=== PATIENT | male | born 1965 | race Caucasian/White ===

== ENCOUNTER 2020-09-02 16:24 | Outpatient (REF) | payer OTHER, SELFPAY ==
[2020-09-02 18:34] LABS: Alanine Aminotransferase 41 U/L (0-40); Albumin Level 4.3 g/dL (3.5-5.0); Alkaline Phosphatase 44 U/L (39-117); Anion Gap 12 (12-20); Aspartate Amino Transferase 25 U/L (5-37); Bilirubin Total 0.4 mg/dL (0.0-1.0); Blood Urea Nitrogen 15 mg/dL (9-16); Carbon Dioxide 31 mmol/L (22-29); Chloride 99 mmol/L (96-108); Cholesterol 140 mg/dL; Estimated Glomerular Filt Rate > 60; Glucose Random 208 mg/dL (60-115); HDL Cholesterol 26 mg/dL; LDL Cholesterol Calculated 87 mg/dl; Potassium 3.9 mmol/l (3.3-5.1); Sodium 138 mmol/L (135-145); Total Protein 6.7 g/dL (6.5-8.0); Triglycerides 135 mg/dL
[2020-09-03 04:35] LABS: Estimated Average Glucose 166 mg/dL; Hemoglobin A1c % 7.4 %
== END 2020-09-02 16:25 | disposition home or self-care (01) ==
LOC: HO.LAB 16:24
PROVIDERS: PCP Internal Medicine; Visit Provider Internal Medicine
DX: E11.65 Type 2 diabetes mellitus with hyperglycemia (principal); E78.2 Mixed hyperlipidemia; R80.9 Proteinuria, unspecified
CPT/HCPCS: 80053; 80061; 83036

== ENCOUNTER 2020-12-02 11:40 | Outpatient (REF) | payer OTHER, SELFPAY ==
[2020-12-02 13:46] LABS: Alanine Aminotransferase 48 U/L (0-40); Albumin Level 4.2 g/dL (3.5-5.0); Alkaline Phosphatase 41 U/L (39-117); Anion Gap 12 (12-20); Aspartate Amino Transferase 30 U/L (5-37); Bilirubin Total 0.5 mg/dL (0.0-1.0); Blood Urea Nitrogen 12 mg/dL (9-16); Calcium 9.6 mg/dL (8.4-10.2); Carbon Dioxide 31 mmol/L (22-29); Chloride 100 mmol/L (96-108); Cholesterol 96 mg/dL; Estimated Glomerular Filt Rate > 60; Glucose Random 169 mg/dL (60-115); HDL Cholesterol 25 mg/dL; LDL Cholesterol Calculated 49 mg/dl; Sodium 139 mmol/L (135-145); Total Protein 6.7 g/dL (6.5-8.0); Triglycerides 110 mg/dL
[2020-12-02 14:01] LABS: Estimated Average Glucose 160 mg/dL; Hemoglobin A1c % 7.2 %
== END 2020-12-02 11:41 | disposition home or self-care (01) ==
LOC: HO.LAB 11:40
PROVIDERS: PCP Internal Medicine; Visit Provider Internal Medicine
DX: E11.65 Type 2 diabetes mellitus with hyperglycemia (principal); E78.00 Pure hypercholesterolemia, unspecified; I10 Essential (primary) hypertension; R80.9 Proteinuria, unspecified
CPT/HCPCS: 36415; 80053; 80061; 83036

== ENCOUNTER 2021-02-02 17:12 | Outpatient (REF) | payer OTHER, SELFPAY ==
[2021-02-02 18:59] LABS: Alanine Aminotransferase 44 U/L (0-40); Albumin Level 4.4 g/dL (3.5-5.0); Alkaline Phosphatase 39 U/L (39-117); Anion Gap 12 (12-20); Aspartate Amino Transferase 33 U/L (5-37); Bilirubin Total 0.6 mg/dL (0.0-1.0); Blood Urea Nitrogen 15 mg/dL (9-16); Calcium 9.5 mg/dL (8.4-10.2); Carbon Dioxide 29 mmol/L (22-29); Chloride 104 mmol/L (96-108); Estimated Glomerular Filt Rate > 60; Glucose Random 110 mg/dL (60-115); Sodium 141 mmol/L (135-145); Total Protein 6.9 g/dL (6.5-8.0)
[2021-02-03 08:33] LABS: Estimated Average Glucose 169 mg/dL; Hemoglobin A1c % 7.5 %
== END 2021-02-02 17:13 | disposition home or self-care (01) ==
LOC: HO.LAB 17:12
PROVIDERS: PCP Internal Medicine; Visit Provider Internal Medicine
DX: E11.9 Type 2 diabetes mellitus without complications (principal); E78.00 Pure hypercholesterolemia, unspecified; I10 Essential (primary) hypertension; Z68.33 Body mass index [BMI] 33.0-33.9, adult
CPT/HCPCS: 36415; 80053; 83036

== ENCOUNTER 2021-04-19 11:03 | Emergency (ER) | payer OTHER, SELFPAY ==
[2021-04-19 11:34] VITALS: BP 126/81; PULSE 72; RESP 18; TEMP 36.6; O2SAT 97; BMI 33.4
--- NOTE | 2021-04-19 12:31 | ED_ITS ---
HPI - Eye Problem General Chief complaint: Eye Problems Stated complaint: EYE ISSUE Time Seen by Provider: 04/19/21 12:25 Source: patient Mode of arrival: ambulatory Limitations: no limitations History of Present Illness HPI Narrative: 56 years old male came in for evaluation of pain, redness, swelling of the right lower eyelid. Symptoms started 1 day ago, decline using contact lines, no visual change, no blurred vision. Associated symptoms: none Related Data Previous Rx's Medication Instructions Recorded erythromycin 0.5 inch OPHTHALMIC (EYE) TID #3.5 04/19/21 g Allergies Allergy/AdvReac Type Severity Reaction Status Date / Time No Known Allergies Allergy Unverified 07/02/20 14:45 Review of Systems Review of Systems: All other systems are reviewed and are negative Constitutional: Reports as per HPI and Reports no additional constitutional complaints Eyes: Reports as per HPI and Reports no additional eye complaints Reports system reviewed and no additional complaints, except as documented Cardiovascular: Reports as per HPI and Reports no additional cardiovascular complaints Respiratory: Reports as per HPI and Reports no additional respiratory complaints Gastrointestinal: Reports as per HPI and Reports no additional gastrointestinal complaints Genitourinary: Reports no additional female genitourinary complaints Musculoskeletal: Reports no additional musculoskeletal complaints Skin/Breast: Reports system reviewed and no additional complaints, except as docu Psychiatric: Reports no additional psychiatric complaints Endocrine: Reports no additional endocrine complaints Hematologic/Lymphatic: Reports no additional hematologic/lymphatic complaints Allergic/Immunologic: Reports no additional allergic/immunologic complaints Reports system reviewed and no additional complaints, except as documented and Reports Abnormal speech present [facility] Social History Social History Advance Directives: No Advance Directives Information Provided: No Physical Exam Vital Signs: Vital Signs: Last Vital Signs Temp 98 F 04/19/21 11:34 Pulse 72 04/19/21 11:34 Resp 18 04/19/21 11:34 BP 126/81 04/19/21 11:34 Pulse Ox 97 04/19/21 11:34 Body Mass Index 33.4 vital signs have been reviewed as appeared to be correct. Blood pressure normal. Heart rate normal. Respiration rate normal. Temperature normal. Oxygen saturation normal. Appearance: Alert. Oriented X3. No acute distress. Head: Normal external exam. Normocephalic. Atraumatic. No Rajput signs noted. No raccoon eyes noted ENT: TM's Normal. Pharynx normal. Uvula midline. Moist mucous membranes. No trismus noted. No drooling noted. No muffled voice noted. Neck: Normal inspection. Neck supple. FROM. No adenopathy. Thyroid Normal. No meningeal signs. No neck mass noted. CVS: Normal heart rate and rhythm. Heart sound normal. No murmurs noted. Pulses normal throughout. Respiratory: No respiratory distress. Painless inspiration. Breath sounds normal. No wheezes/rales/rhonchi noted. Chest nontender. No accessory muscle usage noted or decreased air movement noted. Abdomen: Soft and nontender. Bowel sounds normal in all 4 quadrants. No distention noted. No organomegaly noted. No visible injury noted. Back: No CVA tenderness. Full range of motion noted. Skin: Skin warm and dry. Normal skin color. Normal skin turgor. No rashes/lesions/lacerations noted. Extremities: No lower extremity edema. Extremities exhibit normal range of motion. Extremities nontender. Neuro: Oriented X 3. No motor deficit. No sensory deficit. Reflexes normal. Eyes: Visual Hodge: normal visual hodge by confrontation (VA 20/40 L and 20/50 R.) Alignment and Position: alignment normal Periorbital: periorbital findings normal Eyelids: Yes other ( Right lower eyelid redness and swelling,tenderness on the lateral aspect) Conjunctivae: conjunctivae normal Sclerae: sclerae normal Corneas: corneas normal Pupils: Equal, round and reactive pupils present EOM: EOMs intact bilaterally Direct Ophthalmoscopy: normal light reflex, no photophobia, no papilledema and anterior chamber normal Neuro: Cranial nerves: Yes Equal, round and reactive pupils present Course Course Course Narrative: right lower eyelid infected stye. Warm compression, erythromycin ointment. Discharge Plan Discharge Clinical Impression: Hordeolum externum of right lower eyelid Patient Disposition: Home, Self-Care Instructions: Joni (ED) Additional Instructions: apply warm compression to the right eye Prescriptions: New erythromycin 5 mg/gram (0.5 %) ointment 0.5 inch ophthalmic (eye) TID Qty: 3.5 RF: 1 Referrals: Kasia Bach MD [Primary Care Provider] - 2 days
--- NOTE | 2021-04-19 12:39 | PC.NURSE ---
Pt removed reading glasses for exam as he states that they are to be used for up close reading only. He states that his right eye is slightly more blurry than normal at this time.
== END 2021-04-19 12:44 | disposition home or self-care (01) ==
PROVIDERS: Emergency Provider Emergency Medicine; PCP Internal Medicine
DX: H00.012 Hordeolum externum right lower eyelid (principal)
CPT/HCPCS: 99283

== ENCOUNTER 2021-05-30 10:17 | Emergency (ER) | payer OTHER, SELFPAY ==
[2021-05-30 10:31] VITALS: BP 138/82; PULSE 63; RESP 17; TEMP 36.6; O2SAT 98; BMI 33.5
--- NOTE | 2021-05-30 10:53 | ED_ITS ---
HPI - Eye Problem General Chief complaint: Eye Problems Stated complaint: eye pain swollen Time Seen by Provider: 05/30/21 10:40 Source: patient Mode of arrival: ambulatory History of Present Illness HPI Narrative: 56-year-old male with past medical history of diabetes, hypertension presenting to the ED complaining of acute on chronic stye to right lower eyelid times months. Admits area came to a head recently. Admits to wearing glasses, not contacts. Denies visual change/loss, drainage from eye, foreign body sensation Reports compliance with previously prescribed erythromycin ointment and warm compresses without improvement in symptoms Related Data Previous Rx's Medication Instructions Recorded erythromycin 5 mg/gram (0.5 %) eye 0.5 inch OPHTHALMIC (EYE) TID #3.5 04/19/21 ointment g Allergies Allergy/AdvReac Type Severity Reaction Status Date / Time No Known Allergies Allergy Unverified 07/02/20 14:45 Review of Systems Review of Systems: Constitutional: No Fever, No Chills, No Fatigue, No Malaise ENT/Mouth: No Hearing loss, No Ear Pain, No sore throat, No Swallowing Difficulty Eyes: + Eye discomfort, + Swelling, No Redness, No Foreign Body, No Discharge, No Vision Changes Skin: No Skin Lesions, No rash Yes all other systems are reviewed and are negative [facility] Past Medical History Attestation statement: The following information was validated with the patient. Medical History (Updated 05/30/21 @ 10:55 by RED Andrade) Diabetes HTN (hypertension) Physical Exam Vital Signs: Vital Signs: Last Vital Signs Temp 98 F 05/30/21 10:31 Pulse 63 05/30/21 10:31 Resp 17 05/30/21 10:31 BP 138/82 05/30/21 10:31 Pulse Ox 98 05/30/21 10:31 Body Mass Index 33.5 Const: General: cooperative and healthy appearing Orientation/consciousness: patient oriented x3 Limitations: no limitations HENMT: Head: Yes normal to inspection Ears: hearing grossly normal [place] aterally General nose exam: Normal external nose present Face and sinus: Yes normal facial exam Eyes: Other: Visual acuity 20/40 bilaterally corrected Right lower lid with internal chalazion. Nontender. No surrounding erythema/cellulitis. EOMs intact without pain General: appearance normal, both eyes and all related structures Conjunctivae: conjunctivae normal Sclerae: sclerae normal Corneas: corneas normal Pupils: Equal, round and reactive pupils present EOM: EOMs intact bilaterally Direct Ophthalmoscopy: normal light reflex and no photophobia Neck: Neck: Yes normal visual inspection, Yes no lymphadenopathy and Yes no meningeal signs Resp: Effort & Inspection: normal respiratory effort and no respiratory distress Cardio: Rate: regular rate Skin: Rashes: no rashes Wounds: no wounds Neuro: General: patient oriented x3 and no meningeal signs Cranial nerves: Yes Equal, round and reactive pupils present Gait exam (Neuro): Normal gait present Extrem: General: Yes normal to inspection MDM - Eye Problem MDM Narrative Medical decision making narrative: Discussed with patient he needs to follow-up with ophthalmology for likely drainage of the chalazion Discharge Plan Discharge Clinical Impression: Chalazion Qualifiers: Laterality: right Eyelid: lower Qualified Code(s): H00.12 - Chalazion right lower eyelid Patient Disposition: Home, Self-Care Instructions: Chalazion (ED) Additional Instructions: Call the electronic equipment set up operator tomorrow to make an appointment If your symptoms persist or worsen, any visual change or loss please return to the ED Prescriptions: No Action erythromycin 5 mg/gram (0.5 %) ointment 0.5 inch ophthalmic (eye) TID Qty: 3.5 RF: 1 Referrals: Sohan Max [Physician] - 2 days
== END 2021-05-30 11:22 | disposition home or self-care (01) ==
LOC: HO.ED 11:02
PROVIDERS: Emergency Provider Emergency Medicine; PCP Internal Medicine
DX: H00.12 Chalazion right lower eyelid (principal)
CPT/HCPCS: 99282; 99284

== ENCOUNTER 2022-11-24 16:32 | Outpatient (REF) | payer OTHER, SELFPAY ==
[2022-11-24 16:47] LABS: MANUAL DIFF FLAG NO
[2022-11-24 17:37] LABS: Basophils Absolute Auto 0.1 X10*3/uL (0.0-0.2); Basophils Percent Auto 1.1 % (0-2); Eosinophils Absolute Auto 0.3 X10*3/uL (0.0-0.4); Eosinophils Percent Auto 3.9 % (0-4); Hemoglobin 15.8 g/dl (14.0-18.0); Imm Gran Abs Auto 0.01 X10*3/uL (0.00-0.03); Imm Gran Pct Auto 0.1 % (0.0-0.4); Lymphocytes Absolute Auto 2.7 X10*3/uL (1.2-4.9); Lymphocytes Percent Auto 33.8 % (20-40); Mean Corpuscular HGB Conc 33.6 g/dl (31.0-36.0); Mean Corpuscular Hemoglobin 29.3 pg (27.0-33.0); Mean Platelet Volume 10.3 fL (9.4-12.4); Monocytes Absolute Auto 0.5 X10*3/uL (0.1-1.2); Monocytes Percent Auto 6.3 % (2-11); Neutrophils Absolute Auto 4.4 x10*3/uL (2.0-8.3); Neutrophils Percent Auto 54.8 % (45-73); Platelet Count 219 X10*3/uL (160-400); Red Cell Distribution Width 12.6 % (11.0-16.0)
[2022-11-24 17:43] LABS: Estimated Average Glucose 169 mg/dL; Hemoglobin A1c % 7.5 %
[2022-11-24 18:03] LABS: Alanine Aminotransferase 32 U/L (0-40); Albumin Level 4.4 g/dL (3.5-5.0); Alkaline Phosphatase 40 U/L (39-117); Anion Gap 16 (12-20); Aspartate Amino Transferase 27 U/L (5-37); Bilirubin Total 0.6 mg/dL (0.0-1.0); Blood Urea Nitrogen 18 mg/dL (9-16); Calcium 9.8 mg/dL (8.4-10.2); Carbon Dioxide 28 mmol/L (22-29); Chloride 101 mmol/L (96-108); Cholesterol 100 mg/dL; Estimated Glomerular Filt Rate > 60; Glucose Random 92 mg/dL (60-115); HDL Cholesterol 29 mg/dL; LDL Cholesterol Calculated 53 mg/dl; Potassium 4.3 mmol/L (3.3-5.1); Sodium 141 mmol/L (135-145); Total Protein 6.8 g/dL (6.5-8.0); Triglycerides 91 mg/dL
[2022-11-24 18:20] LABS: Prostate Specific Antigen 0.76 ng/mL (<0.05-4.0)
== END 2022-11-24 16:33 | disposition home or self-care (01) ==
LOC: HO.LAB 16:32
PROVIDERS: PCP Internal Medicine; Visit Provider Internal Medicine
DX: Z00.00 Encounter for general adult medical examination without abnormal findings (principal); Z12.5 Encounter for screening for malignant neoplasm of prostate; E11.9 Type 2 diabetes mellitus without complications; E78.00 Pure hypercholesterolemia, unspecified; I10 Essential (primary) hypertension
CPT/HCPCS: 36415; 80053; 80061; 82043; 83036; 84153; 85025

== ENCOUNTER 2023-06-01 14:17 | Outpatient (REF) | payer OTHER, SELFPAY ==
[2023-06-01 15:24] LABS: Estimated Average Glucose 137 mg/dL; Hemoglobin A1c % 6.4 %
[2023-06-01 15:30] LABS: Alanine Aminotransferase 38 U/L (0-40); Albumin Level 4.3 g/dL (3.5-5.0); Alkaline Phosphatase 35 U/L (39-117); Anion Gap 11 (12-20); Aspartate Amino Transferase 25 U/L (5-37); Bilirubin Total 0.3 mg/dL (0.0-1.0); Blood Urea Nitrogen 13 mg/dL (9-16); Calcium 9.9 mg/dL (8.4-10.2); Carbon Dioxide 29 mmol/L (22-29); Chloride 104 mmol/L (96-108); Estimated Glomerular Filt Rate > 60; Glucose Random 102 mg/dL (60-115); Potassium 3.8 mmol/L (3.3-5.1); Sodium 140 mmol/L (135-145); Total Protein 7.1 g/dL (6.5-8.0)
[2023-06-01 15:31] LABS: Creatinine Urine 261.27 mg/dL; Microalbum/Creatinine Ratio Ur 37.1 ug/mg cr
== END 2023-06-01 14:18 | disposition home or self-care (01) ==
LOC: HO.LAB 14:17
PROVIDERS: PCP Internal Medicine; Visit Provider Internal Medicine
DX: E11.9 Type 2 diabetes mellitus without complications (principal); E78.00 Pure hypercholesterolemia, unspecified; I10 Essential (primary) hypertension; Z72.0 Tobacco use
CPT/HCPCS: 36415; 80053; 82043; 83036

== ENCOUNTER 2023-12-26 16:32 | Outpatient (REF) | payer OTHER, SELFPAY ==
[2023-12-26 16:42] LABS: MANUAL DIFF FLAG NO
[2023-12-26 17:51] LABS: Basophils Absolute Auto 0.1 X10*3/uL (0.0-0.2); Basophils Percent Auto 1.1 % (0-2); Eosinophils Absolute Auto 0.5 X10*3/uL (0.0-0.4); Eosinophils Percent Auto 6.8 % (0-4); Hematocrit 45.2 % (42.0-52.0); Hemoglobin 15.5 g/dl (14.0-18.0); Imm Gran Abs Auto 0.02 X10*3/uL (0.00-0.03); Imm Gran Pct Auto 0.3 % (0.0-0.4); Lymphocytes Absolute Auto 2.7 X10*3/uL (1.2-4.9); Lymphocytes Percent Auto 33.7 % (20-40); Mean Corpuscular HGB Conc 34.3 g/dl (31.0-36.0); Mean Corpuscular Hemoglobin 29.6 pg (27.0-33.0); Mean Corpuscular Volume 86.4 fL (80.0-98.0); Mean Platelet Volume 10.3 fL (9.4-12.4); Monocytes Absolute Auto 0.5 X10*3/uL (0.1-1.2); Monocytes Percent Auto 6.2 % (2-11); Neutrophils Absolute Auto 4.1 x10*3/uL (2.0-8.3); Neutrophils Percent Auto 51.9 % (45-73); Platelet Count 205 X10*3/uL (160-400); Red Blood Count 5.23 X10*6/uL (4.60-5.80); White Blood Count 7.9 X10*3/uL (4.8-10.8)
[2023-12-26 17:54] LABS: Estimated Average Glucose 203 mg/dL; Hemoglobin A1c % 8.7 % (<6.0)
[2023-12-26 18:31] LABS: Alanine Aminotransferase 33 U/L (0-40); Albumin Level 4.1 g/dL (3.5-5.0); Alkaline Phosphatase 44 U/L (39-117); Anion Gap 9 (12-20); Aspartate Amino Transferase 27 U/L (5-37); Bilirubin Total 0.2 mg/dL (0.0-1.0); Blood Urea Nitrogen 16 mg/dL (9-16); Calcium 9.6 mg/dL (8.4-10.2); Carbon Dioxide 29 mmol/L (22-29); Chloride 106 mmol/L (96-108); Cholesterol 89 mg/dL (<200); Estimated Glomerular Filt Rate > 60; Glucose Random 159 mg/dL (60-115); HDL Cholesterol 28 mg/dL (>40); LDL Cholesterol Calculated 30 mg/dL (<100); Potassium 3.7 mmol/L (3.3-5.1); Sodium 140 mmol/L (135-145); Total Protein 6.7 g/dL (6.5-8.0); Triglycerides 158 mg/dL (<150)
[2023-12-26 18:35] LABS: Microalbum/Creatinine Ratio Ur 22.9 ug/mg cr (<30)
[2023-12-26 18:50] LABS: Prostate Specific Antigen 0.67 ng/mL (<0.05-4.0)
== END 2023-12-26 16:33 | disposition home or self-care (01) ==
LOC: HO.LAB 16:32
PROVIDERS: PCP Internal Medicine; Visit Provider Internal Medicine
DX: Z00.00 Encounter for general adult medical examination without abnormal findings (principal); Z12.5 Encounter for screening for malignant neoplasm of prostate; E11.9 Type 2 diabetes mellitus without complications; E78.00 Pure hypercholesterolemia, unspecified; I10 Essential (primary) hypertension; Z72.0 Tobacco use
CPT/HCPCS: 36415; 80053; 80061; 82043; 82570; 83036; 84153; 85025

== ENCOUNTER 2024-04-11 14:05 | Emergency (ER) | payer OTHER, SELFPAY ==
--- NOTE | ~2024-04-11 | XR_ITS ---
EXAMINATION: XR FOOT, LEFT CLINICAL INFORMATION: Question foreign body. Stepped on earing. COMPARISON: None available. TECHNIQUE: AP, lateral, and oblique views of the left foot. FINDINGS: There is no fracture or dislocation. There are mild degenerative changes of the distal interphalangeal joints of digits 2 through 5. There is a calcaneal spur. No radiopaque foreign object is identified within the soft tissues. XR/XR foot LT min 3V IMPRESSION: No fracture or dislocation. No radiopaque foreign object is identified within the soft tissues.
[2024-04-11 14:46] VITALS: BP 120/35; PULSE 97; RESP 19; TEMP 36.6; O2SAT 98; BMI 31.0
--- NOTE | 2024-04-11 14:56 | ED_ITS ---
HPI - Wound/Laceration General Chief Complaint: Wound/Laceration Stated Complaint: stepped on earring l foot inj Time Seen by Provider: 04/11/24 14:55 Source: patient Mode of arrival: ambulatory Limitations: no limitations History of Present Illness ED Provider: christine HPI narrative: Patient is a 58-year-old male with history of T2DM presenting to the ED with complaint of pain to left foot since Monday. States he accidentally stepped on his daughter's earring while wearing slippers, and the earring punctured through the slipper into his foot. Denies any discharge or drainage. Denies fevers. Has not taken any OTC medications. Unsure of last Tdap, will attempt to call PCP to confirm. Onset (ago): day(s) Extremity Location: left: foot Place: home Patient tetanus UTD: No Context: accidental Associated symptoms: pain Related Data Previous Rx's ?Medication ?Instructions ?Recorded erythromycin 5 mg/gram (0.5 %) eye 0.5 inch ophthalmic (eye) TID #3.5 04/19/21 ointment grams amoxicillin 875 mg-potassium 1 tab PO BID #14 tabs 04/11/24 clavulanate 125 mg tablet Allergies Allergy/AdvReac Type Severity Reaction Status Date / Time No Known Allergies Allergy Verified 04/11/24 14:49 Review of Systems 2 Review of Systems: As per HPI. Yes all other systems are reviewed and are negative Constitutional: Constitutional: Reports as per HPI FORMERLY [facility], [facility] Past Medical History Medical History (Updated 04/11/24 @ 16:35 by Lindsay Frost NP) Diabetes HTN (hypertension) Social History Social History Smoked in Last 30 Days: No Use of substances other than those prescribed or required for medical reasons: No Advance Directives: No Advance Directives Information Provided: Yes Physical Exam 2 Vital Signs: Vital Signs: Last Vital Signs Temp 97.2 F 04/11/24 15:23 Pulse 58 04/11/24 15:23 Resp 16 04/11/24 15:23 BP 117/75 04/11/24 15:23 Pulse Ox 97 04/11/24 15:23 O2 Del Method Room Air 04/11/24 15:23 BMI result Body Mass Index 31.0 Vital signs have been reviewed and appear to be correct. Blood pressure normal. Heart rate normal. Respiratory rate normal. Temperature normal. Oxygen saturation normal. Const: General: cooperative, healthy appearing and no acute distress O rientation/consciousness: oriented to person, oriented to place, oriented to time and patient oriented x3 Limitations: no limitations HEENT: Head: Yes normocephalic and Yes atraumatic Ears: external ears normal General nose exam: Normal external nose present Face and sinus: Yes face symmetric Mouth: oropharynx normal and moist mucous membranes Throat: Yes uvula midline Eyes: Pupils: Equal, round and reactive pupils present Neck: Neck: Yes normal visual inspection and Yes supple Resp: Effort & Inspection: normal respiratory effort and able to speak in complete sentences Auscultation: clear to auscultation bilaterally Cardio: Rate: regular rate Rhythm: regular rhythm Heart sounds: S1 normal heart sound present and S2 normal heart sound present GI: Palpation (GI): Soft to palpation and nontender Auscultation: n ormoactive bowel sounds : General: Yes no CVA tenderness Back/Spine/Pelvis: Back: no CVA tenderness Skin: General skin exam: elasticity normal and turgor normal Neuro: General: oriented to person, oriented to place, oriented to time, patient oriented x3, moves all extremities, no focal motor deficits and CN's II- XI intact bilaterally Cranial nerves: Yes Equal, round and reactive pupils present Cognition (Neuro): normal cognition Extrem: General: Yes full ROM, Yes normal exam except as noted, Yes no pedal edema and Yes no calf tenderness Ankle/foot/toe images: 1. puncture wound, mild swelling, no fluctuance Psych: Mental Status: mental status grossly normal Affect: normal affect Thought process: Normal thought process present Medications Administered Discontinued Medications Generic Name Dose Route Start Last Admin Trade Name Freq PRN Reason Stop Dose Admin Diphtheria/Tetanus/Acell Pertussis 0.5 ml 04/11/24 15:35 04/11/24 15:51 Diphth,Pertus(Acell),Tet Adult 0.5 Ml Syringe IM 04/11/24 15:36 0.5 ml .ONCE ONE Administration Medical Decision Making Medical Decision Making MDM Narrative: Patient is a 58-year-old male with history of T2DM presenting to the ED with complaint of pain to left foot since Monday. On exam patient is awake, A+Ox3, VS WNL, afebrile, normal neurological exam without focal deficits, physical exam findings as above. Given reported symptoms and physical exam findings, initial differential includes puncture wound, abscess, cellulitis, foreign body. X-ray notable for no evidence of foreign body or fracture to left foot. My interpretation is in agreement with the radiologist's interpretation. Tdap updated as patient unable to reach PCP office. Will treat with Augmentin. Concerning symptoms and return precautions discussed with patient at bedside. Advised him to follow up with PCP. Patient verbalized understanding of and agreement with plan. Differential Diagnosis Differential Diagnoses: The differential diagnosis associated with the presentation includes As per MDM Independent Interpretation I performed an independent interpretation of an: Plain X-Ray Interpretation: No evidence of foreign body or fracture to left foot on x-ray. Radiology Impression Discussion of test interpretation with radiology: I have reviewed the radiologist's reading. Radiologist Impression: XR/XR foot LT min 3V IMPRESSION: No fracture or dislocation. No radiopaque foreign object is identified within the soft tissues. External Record Review External record reviewed: Inpatient record, Office record and Outpatient record Prescription Management I considered prescription management with: Antibiotic Discharge Plan Discharge Clinical Impression: Puncture wound of foot, left Patient Disposition: Home, Self-Care Instructions: Puncture Wound (DC), Puncture Wound in the Foot (ED) Additional Instructions: You have been evaluated in the emergency department today for a puncture wound to your foot. Your x-ray did not show evidence of a retained foreign body or fracture. Please take your prescribed antibiotics as directed for the full course of the medication. You can use Tylenol or ibuprofen per package instructions every 6 hours as needed for pain. If necessary, you can alternate these medications so that you can take one medication every 3 hours. For instance, at noon take ibuprofen, then at 3:00 p.m. take Tylenol, then at 6:00 p.m. take ibuprofen. Please schedule an appointment for follow-up with your primary care physician as soon as possible. Return to the emergency department if you experience recurrent vomiting, fevers greater than 100.4? F, increasing area of redness, warmth around the area, foul-smelling discharge from the area, increased tenderness around the area, or any other concerning symptoms. Prescriptions: New amoxicillin-pot clavulanate 875-125 mg tablet 1 tab PO BID Qty: 14 0RF No Action erythromycin 5 mg/gram (0.5 %) ointment 0.5 inch ophthalmic (eye) TID Qty: 3.5 1RF Print Language: Bangladeshi
[2024-04-11 15:23] VITALS: BP 117/75; PULSE 58; RESP 16; TEMP 36.2; O2SAT 97
[2024-04-11] MEDS: Diphth,Pertus(ACell),Tet Adult 0.5 ML SYRINGE IM (15:51)
[2024-04-11 16:43] VITALS: BP 120/75; PULSE 60; RESP 18; TEMP 36.6; O2SAT 98
== END 2024-04-11 16:44 | disposition home or self-care (01) ==
PROVIDERS: Emergency Provider Emergency Medicine; PCP Internal Medicine
DX: S91.332A Puncture wound without foreign body, left foot, initial encounter (principal); W22.8XXA Striking against or struck by other objects, initial encounter; M79.672 Pain in left foot; E11.9 Type 2 diabetes mellitus without complications; I10 Essential (primary) hypertension; Y93.89 Activity, other specified; Y92.009 Unspecified place in unspecified non-institutional (private) residence as the place of occurrence of the external cause; Y99.9 Unspecified external cause status; Z23 Encounter for immunization
CPT/HCPCS: 73630; 90471; 90715; 99284

== ENCOUNTER 2024-07-17 16:51 | Outpatient (REF) | payer OTHER, SELFPAY ==
[2024-07-17 17:16] LABS: Basophils Absolute Auto 0.1 X10*3/uL (0.0-0.2); Eosinophils Absolute Auto 0.3 X10*3/uL (0.0-0.4); Eosinophils Percent Auto 4.1 % (0-4); Hematocrit 47.1 % (42.0-52.0); Hemoglobin 16.1 g/dl (14.0-18.0); Imm Gran Abs Auto 0.01 X10*3/uL (0.00-0.03); Imm Gran Pct Auto 0.1 % (0.0-0.4); Lymphocytes Absolute Auto 2.3 X10*3/uL (1.2-4.9); MANUAL DIFF FLAG NO; Mean Corpuscular HGB Conc 34.2 g/dl (31.0-36.0); Mean Corpuscular Hemoglobin 29.3 pg (27.0-33.0); Mean Corpuscular Volume 85.8 fL (80.0-98.0); Mean Platelet Volume 9.9 fL (9.4-12.4); Monocytes Absolute Auto 0.4 X10*3/uL (0.1-1.2); Monocytes Percent Auto 5.9 % (2-11); Neutrophils Absolute Auto 4.1 x10*3/uL (2.0-8.3); Neutrophils Percent Auto 56.9 % (45-73); Platelet Count 196 X10*3/uL (160-400); Red Blood Count 5.49 X10*6/uL (4.60-5.80); Red Cell Distribution Width 12.6 % (11.0-16.0); White Blood Count 7.3 X10*3/uL (4.8-10.8)
[2024-07-17 18:09] LABS: Creatinine Urine 141.92 mg/dL; Microalbum/Creatinine Ratio Ur 22.5 ug/mg cr (<30)
[2024-07-17 19:22] LABS: Alanine Aminotransferase 38 U/L (0-40); Albumin Level 4.2 g/dL (3.5-5.0); Alkaline Phosphatase 50 U/L (39-117); Anion Gap 13 (12-20); Aspartate Amino Transferase 27 U/L (5-37); Bilirubin Total 0.5 mg/dL (0.0-1.0); Blood Urea Nitrogen 12 mg/dL (9-16); Calcium 9.4 mg/dL (8.4-10.2); Carbon Dioxide 29 mmol/L (22-29); Chloride 102 mmol/L (96-108); Cholesterol 92 mg/dL (<200); Estimated Glomerular Filt Rate > 60; Glucose Random 198 mg/dL (60-115); HDL Cholesterol 31 mg/dL (>40); LDL Cholesterol Calculated 43 mg/dL (<100); Potassium 4.1 mmol/L (3.3-5.1); Sodium 140 mmol/L (135-145); Total Protein 6.9 g/dL (6.5-8.0); Triglycerides 90 mg/dL (<150)
[2024-07-17 19:42] LABS: Prostate Specific Antigen 0.74 ng/mL (<0.05-4.0)
[2024-07-18 07:53] LABS: Estimated Average Glucose 226 mg/dL; Hemoglobin A1C 322.0008 umol/L; Hemoglobin A1c % 9.5 % (<6.0); Total Hemoglobin (HGBA1C) 3981.8245 umol/L
== END 2024-07-17 16:52 | disposition home or self-care (01) ==
LOC: HO.LAB 16:51
PROVIDERS: PCP Internal Medicine; Visit Provider Internal Medicine
DX: E11.65 Type 2 diabetes mellitus with hyperglycemia (principal); E78.00 Pure hypercholesterolemia, unspecified; I10 Essential (primary) hypertension; N40.0 Benign prostatic hyperplasia without lower urinary tract symptoms; R80.9 Proteinuria, unspecified
CPT/HCPCS: 36415; 80053; 80061; 82043; 82570; 83036; 84153; 85025

== ENCOUNTER 2024-07-19 10:38 | Emergency (ER) | payer OTHER, SELFPAY ==
--- NOTE | ~2024-07-19 | XR_ITS ---
EXAMINATION: XR HAND, LEFT CLINICAL INFORMATION: PT states drill bit got stuck in skin between 1st 2nd digit last night COMPARISON: None available. TECHNIQUE: PA, lateral, and oblique views of the left hand. FINDINGS: Semination demonstrates a probable small soft tissue defect lateral to the second metacarpal head. Thin, approximately 1.5 mm or less densities project over this region, probably representing foreign bodies. No acute fracture or dislocation is seen. No suspicious lytic or sclerotic bony lesion is identified. No periosteal reaction is noted. Mild degenerative change of the second through fifth DIP joints and possibly the STT joints. XR/XR hand LT min 3V IMPRESSION: Findings as above. Electronically signed by: Candido Beckford MD 07/19/2024 12:09 PM EDT
[2024-07-19 10:40] VITALS: BP 130/83; PULSE 60; RESP 16; TEMP 36.4; O2SAT 97; BMI 30.5
--- NOTE | 2024-07-19 12:48 | ED.EXTPRO ---
HPI - Extremity Problem General Chief complaint: Extremity Injury, Upper Stated complaint: drill bit thru left hand Time Seen by Provider: 07/19/24 12:42 Source: patient Mode of arrival: ambulatory Limitations: no limitations History of Present Illness HPI Narrative: 59-year-old male with a past medical history of nicotine dependence and diabetes presents to the emergency department for management of a laceration to his left hand. He reports he was drilling something yesterday, at work, when the drill bit slipped and caught the space between his thumb and index finger. He reports he has an elliptical laceration with swelling and pain. He states he bandaged his hand and went back to work. He reports that he attempted to work again today but his employer recommended he come to the emergency department for evaluation. He denies any active bleeding or purulent discharge or evidence of lymphangitis. She denies any fevers, chills. He reports decreased range of motion secondary to pain. Pertinent positives and negatives discussed in HPI Related Data Previous Rx's ?Medication ?Instructions ?Recorded erythromycin 5 mg/gram (0.5 %) eye 0.5 inch ophthalmic (eye) TID #3.5 04/19/21 ointment grams amoxicillin 875 mg-potassium 1 tab PO BID #14 tabs 04/11/24 clavulanate 125 mg tablet bacitracin zinc 500 unit/gram 1 appl topical BID #28 grams 07/19/24 topical ointment cephalexin 500 mg capsule 500 mg PO QID 7 days #28 caps 07/19/24 Allergies Allergy/AdvReac Type Severity Reaction Status Date / Time No Known Allergies Allergy Verified 07/19/24 10:42 Review of Systems Review of Systems: Yes all other systems are reviewed and are negative FORMERLY [facility], [facility] Past Medical History Medical History (Updated 07/19/24 @ 13:16 by Daniela Duron NP) Diabetes HTN (hypertension) Social History Social History Advance Directives: No Advance Directives Information Provided: No Physical Exam Vital Signs: Vital Signs: Last Vital Signs Temp 97.5 F 07/19/24 10:40 Pulse 60 07/19/24 10:40 Resp 16 07/19/24 10:40 BP 130/83 07/19/24 10:40 Pulse Ox 97 07/19/24 10:40 O2 Del Method Room Air 07/19/24 10:40 BMI result Body Mass Index 30.5 Nursing notes and vital signs reviewed. GENERAL APPEARANCE: A&0 x 4, generally well appearing, no acute distress HENMT: Normal to inspection, atraumatic, face symmetrical. Normal external ears, nose, and oropharynx clear. EYE: PERRLA, EOM intact, structures appear normal NECK: Supple without stiffness or restricted ROM. HEART: Normal rate and regular rhythm, normal S1/S2, no M/R/G LUNGS: LS CTA, moving air well. Able to speak in complete sentences. No crackles, wheezes, or rhonchi auscultated BACK: No CVAT, no obvious deformity EXTREMITIES: Decreased range of motion of left hand. Elliptical laceration noted with no active bleeding or evidence of infection. Normal capillary refill. NEUROLOGICAL: Alert and oriented, moving all 4 extremities with equal strength. CN not formally tested but appearing grossly intact. Observed to ambulate with normal gait. Cognition normal SKIN: Warm and dry without any lesions, rash, or visible sores Extrem: Hand/finger images: 1. 2 cm by 1 mm elliptical laceration. Medical Decision Making Medical Decision Making MDM Narrative: Old records reviewed for previous imaging, lab studies, ECGs, and notes. Patient was assessed the emergency department with no acute distress or toxicity noted. X-ray left hand completed I have independently interpreted this x-ray as negative for fractures or dislocations. Radiologist reports probable soft tissue defect lateral to the 2nd metacarpal head with thin, proximally 1.5 mm or less densities over the region probably representing foreign bodies. Mild degenerative changes of the 2nd through 5th PIP joints and possibly the STT joints noted with no fractures or dislocations. Wound extensively cleansed, bacitracin applied, and gauze wrap. Patient educated to keep wound clean and dry and to continue use of antibiotic ointment and dressing changes 2-3 times per day. Seven day course of cephalexin sent to patient's preferred pharmacy for infection prevention. Patient is safe for discharge at this time with plan for [id number] Tylenol and/or NSAID such as ibuprofen or naproxen for fever/discomfort with dosing as per packaging. HPI, PE, diagnostics, and plan discussed with patient and family with no unanswered questions at this time. Strict return precautions given to return to the emergency department with new, worsening, or concerning emergent symptoms. Recommended to follow-up with there primary care provider in 24-48 hours for further treatment and management. Differential Diagnosis Differential Diagnoses: The differential diagnosis associated with the presentation includes But not limited to fracture, dislocation, laceration, abrasion, avulsion, abscess, cellulitis Independent Interpretation I performed an independent interpretation of an: Plain X-Ray Interpretation: No evidence of acute fracture or dislocation Radiology Impression Discussion of test interpretation with radiology: I have reviewed the radiologist's reading. External Record Review External record reviewed: Other Previous records Prescription Management I considered prescription management with: Pain Medication Narcotic pain medication was considered, however; based on exam, side effects, and high-risk of addiction was deemed necessary at this time. Chronic Conditions Patient?s care impacted by: Diabetes Discharge Plan Discharge Clinical Impression: Laceration of hand, left, Nicotine dependence Patient Disposition: Home, Self-Care Instructions: How to Stop Smoking (ED), Laceration (ED), Acute Wounds (ED) Additional Instructions: EXAMINATION: XR HAND, LEFT CLINICAL INFORMATION: PT states drill bit got stuck in skin between 1st 2nd digit last night COMPARISON: None available. TECHNIQUE: PA, lateral, and oblique views of the left hand. FINDINGS: Semination demonstrates a probable small soft tissue defect lateral to the second metacarpal head. Thin, approximately 1.5 mm or less densities project over this region, probably representing foreign bodies. No acute fracture or dislocation is seen. No suspicious lytic or sclerotic bony lesion is identified. No periosteal reaction is noted. Mild degenerative change of the second through fifth DIP joints and possibly the STT joints. XR/XR hand LT min 3V IMPRESSION: Findings as above. Prescriptions: New cephalexin 500 mg capsule 500 mg PO QID 7 Days Qty: 28 0RF bacitracin zinc 500 unit/gram ointment 1 appl topical BID Qty: 28 0RF No Action erythromycin 5 mg/gram (0.5 %) ointment 0.5 inch ophthalmic (eye) TID Qty: 3.5 1RF amoxicillin-pot clavulanate 875-125 mg tablet 1 tab PO BID Qty: 14 0RF Referrals: Kasia Bach MD [Primary Care Provider] - Noris Allen MD [Physician] - Stand Alone Forms: Work/School Release Print Language: Sami
--- NOTE | 2024-07-19 13:39 | PC.NURSE ---
PT WAS SEEN AND DISCHARGED BY PROVIDER
== END 2024-07-19 13:37 | disposition home or self-care (01) ==
LOC: HO.ED 13:20
PROVIDERS: Emergency Provider Student in an Organized Health Care Education/Training Program; PCP Internal Medicine
DX: S61.412A Laceration without foreign body of left hand, initial encounter (principal); W31.82XA Contact with other commercial machinery, initial encounter; Y93.89 Activity, other specified; Y92.59 Other trade areas as the place of occurrence of the external cause; Y99.0 Civilian activity done for income or pay; E11.9 Type 2 diabetes mellitus without complications; I10 Essential (primary) hypertension; F17.210 Nicotine dependence, cigarettes, uncomplicated; Z71.6 Tobacco abuse counseling
CPT/HCPCS: 73130; 99281; 99283

== ENCOUNTER 2025-02-12 08:24 | Emergency (ER) | payer OTHER, SELFPAY ==
[2025-02-12 08:35] VITALS: BP 145/75; PULSE 63; RESP 16; TEMP 36.4; O2SAT 96; BMI 30.4
--- NOTE | 2025-02-12 08:47 | ED.EYEPROB ---
HPI - Eye Problem General Chief complaint: Eye Problems Stated complaint: L eye irritation Time Seen by Provider: 02/12/25 08:47 Source: patient Mode of arrival: ambulatory Limitations: no limitations History of Present Illness ED Provider: Stewart Benito PA-C HPI Narrative: 59 y/o male presenting to the ER for evaluation of left eye irritation, swelling and itching that started yesterday. He noticed today that there was a pus pocket inside of the lower lid. It is causing pressure and discomfort. His vision is blurry in the left eye only. No drainage or discharge. No injury or FB sensation. He wears glasses at baseline, no contact lenses. chief complaint: eye pain and vision change Onset (ago): day(s) (1) Onset description: gradual Duration: constant Location: left eye Eye Symptoms: redness, pain, itching and blurry vision Place: home Mechanism: none Associated symptoms: none Treatments Prior to Arrival: none Related Data Previous Rx's ?Medication ?Instructions ?Recorded erythromycin 5 mg/gram (0.5 %) eye 0.5 inch ophthalmic (eye) TID #3.5 04/19/21 ointment grams amoxicillin 875 mg-potassium 1 tab PO BID #14 tabs 04/11/24 clavulanate 125 mg tablet bacitracin zinc 500 unit/gram 1 appl topical BID #28 grams 07/19/24 topical ointment cephalexin 500 mg capsule 500 mg PO QID 7 days #28 caps 07/19/24 erythromycin 5 mg/gram (0.5 %) eye 0.5 inch ophthalmic (eye) BID #3.5 02/12/25 ointment grams Allergies Allergy/AdvReac Type Severity Reaction Status Date / Time No Known Allergies Allergy Verified 02/12/25 08:37 Review of Systems Review of Systems: Yes all other systems are reviewed and are negative PMFSH Past Medical History Medical History (Updated 02/12/25 @ 09:06 by RED Pang) Diabetes HTN (hypertension) Social History Social History Advance Directives: No Advance Directives Information Provided: Yes Physical Exam Vital Signs: Vital Signs: Last Vital Signs Temp 97.6 F 02/12/25 08:35 Pulse 63 02/12/25 08:35 Resp 16 02/12/25 08:35 BP 145/75 H 02/12/25 08:35 Pulse Ox 96 02/12/25 08:35 O2 Del Method Room Air 02/12/25 08:35 BMI result Body Mass Index 30.4 Appearance: Alert. Oriented X3. No acute distress. HEENT: normal inspection of the head and face. right eye with normal inspection of the lids, sclera and conjunctiva. left eye with mild injection of the sclera, lower lid with pustule internally, no ptosis. no discharge or periorbital swelling. PERRL. fluorescence exam normal without any uptake CVS: Normal heart rate and rhythm. Pulses normal. Respiratory: No respiratory distress. speaking in complete sentences Skin: Skin warm and dry. Normal skin color. Normal skin turgor. No rashes. Extremities: normal inspection x4 Neuro: grossly normal, steady gait, normal speech and cognition Medications Administered Discontinued Medications Generic Name Dose Route Start Last Admin Trade Name Freq PRN Reason Stop Dose Admin Fluorescein Sodium 1 strip 02/12/25 08:47 02/12/25 09:06 Fluorescein Sodium Strip EYE-LEFT 02/12/25 08:48 1 strip ONCE ONE Administration Tetracaine HCl 1 drop 02/12/25 08:47 02/12/25 09:06 Tetracaine Hcl/Pf 0.5% Oph Amy 4 Ml Drops EYE-LEFT 02/12/25 08:48 1 drop ONCE ONE Administration Medical Decision Making Medical Decision Making MDM Narrative: 59 yo male presents to the ER for evaluation of left eye irritation and pressure since last night. he noticed a pustule inside the lower lid. exam is c/w internal horedolum of the lower lid ocular pressures are normal w/ tonopen no abrasions seen stable for d/c home with erythromycin ointment and warm compresses Differential Diagnosis Differential Diagnoses: The differential diagnosis associated with the presentation includes corneal abrasion, hordeolum, iritis, conjunctivitis, foreign body, glaucoma External Record Review External record reviewed: Prior outpatient labs Prescription Management I considered prescription management with: Pain Medication and Antibiotic Critical Care Time Critical Care Time Critical Care Time: No Discharge Plan Discharge Clinical Impression: Internal hordeolum of left eye Qualifiers: Eyelid: lower Qualified Code(s): H00.025 - Hordeolum internum left lower eyelid Patient Disposition: Home, Self-Care Instructions: Joni (ED) Additional Instructions: use warm compresses to the left eye several times per day use the prescribed antibiotic ointment 2x per day for the next week follow up with your eye doctor as needed If you develop new or worsening symptoms call 911 or come back to the ER for further evaluation. Prescriptions: New erythromycin 5 mg/gram (0.5 %) ointment 0.5 inch ophthalmic (eye) BID Qty: 3.5 0RF No Action erythromycin 5 mg/gram (0.5 %) ointment 0.5 inch ophthalmic (eye) TID Qty: 3.5 1RF amoxicillin-pot clavulanate 875-125 mg tablet 1 tab PO BID Qty: 14 0RF cephalexin 500 mg capsule 500 mg PO QID 7 Days Qty: 28 0RF bacitracin zinc 500 unit/gram ointment 1 appl topical BID Qty: 28 0RF Stand Alone Forms: Work/School Release Print Language: Prydeinig
[2025-02-12] MEDS: Fluorescein Sodium STRIP 1 STRIP EYE-LEFT (09:06)
[2025-02-12] MEDS: Tetracaine HCl/PF 0.5% Oph Sol 4 ML DROPS 1 DROP EYE-LEFT (09:06)
[2025-02-12 09:13] VITALS: BP 147/79; PULSE 61; RESP 16; TEMP 36.6; O2SAT 95
[2025-02-12 09:32] VITALS: BP 147/79; PULSE 61; RESP 16; TEMP 36.6; O2SAT 95
== END 2025-02-12 09:33 | disposition home or self-care (01) ==
PROVIDERS: Emergency Provider Emergency Medicine; PCP Internal Medicine
DX: H00.025 Hordeolum internum left lower eyelid (principal); H57.12 Ocular pain, left eye; H53.8 Other visual disturbances
CPT/HCPCS: 99283; 99284

== ENCOUNTER 2025-02-27 16:45 | Outpatient (REF) | payer OTHER, SELFPAY ==
[2025-02-27 17:23] LABS: Estimated Average Glucose 206 mg/dL; Hemoglobin A1C 297.7668 umol/L; Hemoglobin A1c % 8.8 % (<6.0)
[2025-02-27 17:47] LABS: Alanine Aminotransferase 39 U/L (0-40); Albumin Level 4.4 g/dL (3.5-5.0); Alkaline Phosphatase 46 U/L (39-117); Anion Gap 14 (12-20); Aspartate Amino Transferase 32 U/L (5-37); Bilirubin Total 0.4 mg/dL (0.0-1.0); Blood Urea Nitrogen 15 mg/dL (9-16); Calcium 9.7 mg/dL (8.4-10.2); Carbon Dioxide 27 mmol/L (22-29); Chloride 106 mmol/L (96-108); Estimated Glomerular Filt Rate > 60; Glucose Random 114 mg/dL (60-115); Potassium 3.8 mmol/L (3.3-5.1); Sodium 143 mmol/L (135-145); Total Protein 7.2 g/dL (6.5-8.0)
== END 2025-02-27 16:46 | disposition home or self-care (01) ==
LOC: HO.LAB 16:45
PROVIDERS: PCP Internal Medicine; Visit Provider Internal Medicine
DX: Z00.00 Encounter for general adult medical examination without abnormal findings (principal); E11.9 Type 2 diabetes mellitus without complications; E78.00 Pure hypercholesterolemia, unspecified; R80.9 Proteinuria, unspecified; Z72.0 Tobacco use
CPT/HCPCS: 36415; 80053; 83036

== ENCOUNTER 2025-05-27 16:36 | Outpatient (REF) | payer OTHER, SELFPAY ==
--- OUTSIDE RECORDS SUMMARY | 2025-05-27 16:40 | XMS_ITS | Patient Health Record ---
Author Organization [facility] Address [address] [place] [address] Care Team Providers Care Php Magento Developer Name Role Phone Mikala Kasia Primary Care Provider Unavailab Kyle Lopez Jr Unavailable Reason For Referral No Information Medications Medication SIG (Take, Route, Frequency, Duration) Notes Start Date End Date Status Colyte with Flavor Packs 240 GM As directed Orally Over the specified time. for 1 day(s) 11/04/2015 Active amLODIPine Besylate 10 MG 1 tablet Orally Once a day Active Problems Problem Type SNOMED Code ICD Code Onset Dates Problem Status W/U Status Risk Notes Problem [id number] Colon cancer screening (Z12.11) Active confirmed Plan Of Treatment Future Test Test Name Order Date COLONOSCOPY 11/04/2015 Insurance Providers Payer Name Payer Address Payer Phone Subscriber Number Group Number Insured Name Patient Relationship to Insured Coverage Start Date Coverage End Date MEDICAID OF [facility] [address] [place] [phone] [id number] CECILE PARIKH Self - patient is the insured Medical (General) History Medical History History ICD Code hypertension Denies [place],DM,CVA,Lung disease,renal dise ase Surgical History Surgery Date(Month/Year) back surgery 2013
[2025-05-27 17:14] LABS: Hemoglobin A1C 327.0025 umol/L; Total Hemoglobin (HGBA1C) 4291.4327 umol/L
[2025-05-27 17:38] LABS: Alanine Aminotransferase 43 U/L (0-40); Albumin Level 4.6 g/dL (3.5-5.0); Alkaline Phosphatase 47 U/L (39-117); Anion Gap 13 (12-20); Aspartate Amino Transferase 34 U/L (5-37); Blood Urea Nitrogen 15 mg/dL (9-16); Calcium 9.5 mg/dL (8.4-10.2); Carbon Dioxide 28 mmol/L (22-29); Chloride 105 mmol/L (96-108); Estimated Glomerular Filt Rate > 60; Potassium 3.9 mmol/L (3.3-5.1); Sodium 142 mmol/L (135-145); Total Protein 7.1 g/dL (6.5-8.0)
== END 2025-05-27 16:37 | disposition home or self-care (01) ==
LOC: HO.LAB 16:36
PROVIDERS: PCP Internal Medicine; Visit Provider Internal Medicine
DX: E11.9 Type 2 diabetes mellitus without complications (principal); E78.00 Pure hypercholesterolemia, unspecified; R80.9 Proteinuria, unspecified; Z72.0 Tobacco use
CPT/HCPCS: 36415; 80053; 83036

== ENCOUNTER 2025-09-28 10:24 | Emergency (ER) | payer OTHER, SELFPAY ==
[2025-09-28 10:30] VITALS: BP 129/73; PULSE 64; RESP 18; TEMP 17.7; O2SAT 95; BMI 31.0
--- OUTSIDE RECORDS SUMMARY | 2025-09-28 11:18 | XMS_ITS | Patient Health Record ---
Author Organization [facility] Address [address] [place] [address] Care Team Providers Care Test Engineer Name Role Phone Kasia Bach Primary Care Provider UnavailKyle Boo Jr Unavailable Reason For Referral No Information Medications Medication SIG (Take, Route, Frequency, Duration) Notes Start Date End Date Status Colyte with Flavor Packs 240 GM Solution Reconstituted As directed Orally Over the specified time.; Duration: 1 day(s) 11/04/2015 Active amLODIPine Besylate 10 MG Tablet 1 tablet Orally Once a day Active Social History Social History Drugs/Alcohol: Social Info Question Answer Notes Drugs Have you used drugs other than those for medical reasons in the past 12 months? 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 Problems Problem Type SNOMED Code ICD Code Onset Dates Problem Status W/U Status Risk Notes Problem Colon cancer screening (374353499) Colon cancer screening (Z12.11) Active confirmed Plan Of Treatment Future Test Test Name Order Date COLONOSCOPY 11/04/2015 Insurance Providers Payer Name Payer Address Payer Phone Subscriber Number Group Number Insured Name Patient Relationship to Insured Coverage Start Date Coverage End Date MEDICAID OF [employer] [address] [place] [phone] [id number] CECILE PARIKH Self - patient is the insured Medical (General) History Medical History History ICD Code hypertension Denies [place],DM,CVA,Lung disease,renal dise ase Surgical History Surgery Date(Month/Year) back surgery 2013
--- NOTE | 2025-09-28 11:26 | ED_ITS ---
HPI - Skin/Abscess/Foreign Bdy General Chief complaint: Skin/Abscess/Foreign Body Stated complaint: leg abscess Time Seen by Provider: 09/28/25 11:21 Source: patient, RN notes reviewed and old records reviewed Mode of arrival: ambulatory Limitations: no limitations History of Present Illness ED Provider: ANA Shields HPI narrative: 60-year-old male with medical history of HTN, diabetes presents to the ED due to 6 days of raised painful area of the right groin. Patient states the area started as a small ?bump/boil? and has gotten larger over the last 6 days. Patient states the area is red, and is irritated at the end of his day. Patient denies drainage from the area and has not been taking OTC medication for pain or swelling. Denies recent travel, IVDU, fevers, chills, chest pain, shortness of breath, abdominal pain, nausea, vomiting, diarrhea, testicular pain, urinary symptoms MD complaint: abscess/boil Related Data Previous Rx's ?Medication ?Instructions ?Recorded erythromycin 5 mg/gram (0.5 %) eye 0.5 inch ophthalmic (eye) TID #3.5 04/19/21 ointment grams amoxicillin 875 mg-potassium 1 tab PO BID #14 tabs clavulanate 125 mg tablet bacitracin zinc 500 unit/gram 1 appl topical BID #28 g trinh 07/19/24 topical ointment cephalexin 500 mg capsule 500 mg PO QID 7 days #28 cap s 07/19/24 erythromycin 5 mg/gram (0.5 %) eye 0.5 inch ophthalmic (eye) BID #3.5 02/12/25 ointment grams acetaminophen 500 mg tablet 500 mg PO Q6H PRN fever or pain 09/28/25 (Tylenol Extra Strength) #60 tabs cephalexin 500 mg capsule 500 mg PO QID 7 days #28 cap s 09/28/25 doxycycline hyclate 100 mg tablet 100 mg PO BID 7 days #14 tabs 09/28/25 ibuprofen 200 mg capsule 400 mg (2 x 200 mg) PO Q8H P RN 09/28/25 fever or pain #60 caps Allergies Allergy/AdvReac Type Severity Reaction Status Date / Time No Known Allergies Allergy Verified 09/28/25 10:32 Review of Systems 2 Review of Systems: Yes all other systems are reviewed and are negative [facility] Past Medical History Attestation statement: The following information was validated with the patient. Source: old records reviewed and nursing notes reviewed Medical History Diabetes HTN (hypertension) Social History Social History Advance Directives: No Advance Directives Information Provided: No Physical Exam 2 Vital Signs: Vital Signs: Last Vital Signs Temp 64 F L 09/28/25 10:30 Pulse 64 09/28/25 10:30 Resp 18 09/28/25 10:30 BP 129/73 09/28/25 10:30 Pulse Ox 95 09/28/25 10:30 O2 Del Method Room Air 09/28/25 10:30 BMI result Body Mass Index 31.0 GENERAL APPEARANCE: ?AxOx4, generally well-appearing, no acute distress. HEENT: ?NC, AT. MMM. EOMI, clear conjunctiva, oropharynx clear. NECK: ?Supple without lymphadenopathy.? No stiffness or restricted ROM. HEART:? Normal rate and regular rhythm, normal S1/S2, no m/r/g LUNGS:? CTAB, moving air well. No crackles or wheezes are heard. ABDOMEN: ?Soft, nontender, nondistended BACK: No CVAT, no obvious deformity. EXTREMITIES: ?Without cyanosis, clubbing or edema. : Approximaely 1.5x2cm area of induration and erythema of the R groin, there is no fluctuance, or drainage from the area NEUROLOGICAL: ?Grossly nonfocal. Alert and oriented, moving all 4 extremities. Observed to ambulate with normal gait. Skin: ?Warm and dry without any rash. Medical Decision Making Medical Decision Making MDM Narrative: 60-year-old male with medical history of HTN, diabetes presents to the ED due to 6 days of raised painful area of the right groin. Patient states the area started as a small ?bump/boil? and has gotten larger over the last 6 days. Patient states the area is red, and is irritated at the end of his day. Patient denies drainage from the area and has not been taking OTC medication for pain or swelling. Denies recent travel, IVDU, fevers, chills VS on initial observation-BP 129/73, pulse rate of 64, respiratory rate of 18, afebrile with oral temp of, O2 saturation 95% on room air. On physical exam patient is well-appearing, nontoxic appearing, with indurated area of the right groin (see photos in the physical exam portion of this note) the areas without significant warmth, no edema, no drainage noted. Patient was 6 days of a raised painful area of the right groin, area is indurated and not appropriate for I&D at this time. Patient is afebrile, denies subjective fever, chills or history of IVDU. Patient will be discharged with 7 day course of keflex QUID, and 7 day course of doxycycline BID as patient is diabetic. Patient is well enough to go home for self care. I encouraged patient to follow up with his PCP to ensure resolution of symptoms. I counseled patient on strict return precautions. Patient is in agreement with the plan. Differential Diagnosis Differential Diagnoses: The differential diagnosis associated with the presentation includes Cellulitis Abscess Furuncle Carbuncle Boil Admission/Observation Consideration of admission/observation: Escalation of care including admission/observation considered External Record Review External record reviewed: Inpatient record, Office record and Outpatient record Chronic Conditions Patient?s care impacted by: Diabetes and Hypertension Discharge Plan Discharge Clinical Impression: Abscess of skin or subcutaneous tissue Patient Disposition: Home, Self-Care Additional Instructions: You were evaluated in the emergency department for an abscess located in the right groin. On physical exam the area is firm and hard. Abscess is characterized this way, we do not drain them. You were medicated in the department with 30mg of intramuscular toradol and 975mg oral tylenol for pain and swelling. To control pain at home I recommend you take 500mg of Tylenol every 5 hours and 400mg of ibuprofen every [address] warm compresses over the area twice a day. You are being prescribed 7 day course of Keflex which is an antibiotic that will take 4 times daily, and a 7 day course of doxycycline which is an antibiotic that you will take twice daily. Please complete the entire course of these medications, do not skip a dose or finish earlier than indicated. Please follow up with your primary care doctor to ensure resolution of your symptoms. Please return to the emergency department if you experience fevers over 100.4?, worsening pain of the abscess of the right groin, if the abscess gets larger, or any new/worsening/concerning symptoms. Prescriptions: New cephalexin 500 mg capsule 500 mg PO QID 7 Days Qty: 28 0RF ibuprofen 200 mg capsule 400 mg PO Q8H PRN (Reason: fever or pain) Qty: 60 0RF acetaminophen [Tylenol Extra Strength] 500 mg tablet 500 mg PO Q6H PRN (Reason: fever or pain) Qty: 60 0RF doxycycline hyclate 100 mg tablet 100 mg PO BID 7 Days Qty: 14 0RF No Action erythromycin 5 mg/gram (0.5 %) ointment 0.5 inch ophthalmic (eye) TID Qty: 3.5 1RF amoxicillin-pot clavulanate 875-125 mg tablet 1 tab PO BID Qty: 14 0RF cephalexin 500 mg capsule 500 mg PO QID 7 Days Qty: 28 0RF bacitracin zinc 500 unit/gram ointment 1 appl topical BID Qty: 28 0RF erythromycin 5 mg/gram (0.5 %) ointment 0.5 inch ophthalmic (eye) BID Qty: 3.5 0RF Print Language: Ecuadorean
[2025-09-28 12:23] VITALS: BP 137/78; PULSE 62; RESP 18; TEMP 36.4; O2SAT 95
[2025-09-28 12:33] VITALS: BP 137/78; PULSE 62; RESP 18; TEMP 36.4; O2SAT 95
== END 2025-09-28 12:33 | disposition home or self-care (01) ==
PROVIDERS: Emergency Provider Emergency Medicine; PCP Internal Medicine
DX: L02.214 Cutaneous abscess of groin (principal); I10 Essential (primary) hypertension; E11.9 Type 2 diabetes mellitus without complications
CPT/HCPCS: 96372; 99283; 99284; J1885